=== PATIENT | male | born 2000 | race Caucasian/White ===

== ENCOUNTER 2023-02-13 11:22 | Emergency (ER) | payer BC ==
[2023-02-13] MEDS ORDERED: KETOROLAC 30 MG/ML INJ ONE (11:46)
[2023-02-13] MEDS ORDERED: dexAMETHasone 10 MG/ML VIAL ONE (11:46)
--- NOTE | 2023-02-13 11:51 | ER ---
Nurse's Notes [facility] Name: Curtis Wagner Age: 22 yrs Sex: Male : 2000 Arrival Date: 02/13/2023 Time: 11:22 Bed 19 Private MD: Diagnosis: Sciatica, right side Presentation: 02/13 11:31 Chief complaint: Patient states: R sided back pain that radiates to R hip area since ss yesterday. No known injury. Coronavirus screen: Client denies travel out of the [place] in the last 14 days. Ebola Screen: Patient denies exposure to infectious person. Patient denies travel to an Ebola-affected area in the 21 days before illness onset. Initial Sepsis Screen: Does the patient meet any 2 criteria? No. Patient's initial sepsis screen is negative. Does the patient have a suspected source of infection? No. Patient's initial sepsis screen is negative. Risk Assessment: Do you want to hurt yourself or someone else? Patient reports no desire to harm self or others. Onset of symptoms was February 12, 2023. 11:31 Method Of Arrival: Ambulatory ss 11:31 Acuity: BOOGIE 4 ss Historical: - Allergies: 11:32 No Known Allergies; ss - Home Meds: 11:32 None [Active]; ss - PMHx: 11:32 None; ss - PSHx: 11:32 L foot repair; ss - Immunization history:: Client reports having NOT received the Covid vaccine. - Social history:: Smoking status: Patient reports the use of cigarette tobacco products, denies chronic smoking, but will smoke occasionally. Vital Signs: 11:31 BP 156 / 89; Pulse 76; Resp 16; Temp 98.8(TE); Pulse Ox 100% on R/A; Pain 6/10; ss 12:12 BP 135 / 60; Pulse 75; Resp 15; Pulse Ox 100% ; Pain 3/10; jl7 11:31 Pain Scale: Adult ss 12:12 Pain Scale: Adult jl7 ED Course: 11:23 Patient arrived in ED. rg4 11:23 Steffanie Musa FNP-C is [facility]. kb 11:23 Avery Dowling MD is Attending Physician. kb 11:32 Triage completed. ss 11:32 Arm band placed on left wrist. ss 11:34 Ade Meadows, RN is Primary Nurse. jl7 12:13 No provider procedures requiring assistance completed. Patient did not have IV access jl7 during this emergency room visit. Administered Medications: 11:47 Drug: Dexamethasone IM 10 mg Route: IM; Site: left deltoid; jl7 12:12 Follow up: Response: No adverse reaction jl7 11:47 Drug: Ketorolac IM 30 mg Route: IM; Site: right deltoid; jl7 12:12 Follow up: Response: No adverse reaction; Pain is decreased jl7 Outcome: 11:50 Discharge ordered by . kb 12:13 Discharged to home ambulatory. jl7 12:13 Condition: stable 12:13 Discharge instructions given to patient, Instructed on discharge instructions, follow up and referral plans. medication usage, Demonstrated understanding of instructions, follow-up care, medications, Prescriptions given X 3. 12:13 Patient left the ED. jl7 Signatures: Steffanie Musa, CARDIAC EXERCISE PHYSIOLOGIST-C CARDIAC EXERCISE PHYSIOLOGIST-CkInna Lucio, RN RN Sheila Benitez rg4 Ade Meadows, RN RN jl7
--- NOTE | 2023-02-13 11:51 | EDPHYS ---
Physician Documentation [facility] Name: Curtis Wagner Age: 22 yrs Sex: Male : 2000 Arrival Date: 02/13/2023 Time: 11:22 Bed 19 Private MD: ED Physician Avery Dowling HPI: 02/13 17:17 This 22 yrs old Male presents to ER via Ambulatory with complaints of Hip Pain, Back kb Pain. 17:17 Pt reports right hip/buttock pain that radiates down leg that started yesterday. Denies kb injury. Denies urinary symptoms. No CVA tenderness. 17:17 The patient presents with pain that is acute, with no known mechanism of injury. The kb symptoms are located in the right low back. The pain radiates to the right leg. The problem was sustained from unknown cause. Onset: The symptoms/episode began/occurred yesterday. Modifying factors: The patient symptoms are alleviated by nothing, the patient symptoms are aggravated by any movement. Associated signs and symptoms: The patient has no apparent associated signs or symptoms. Severity of symptoms: At their worst the symptoms were mild, moderate, in the emergency department the symptoms are unchanged. The patient has not experienced similar symptoms in the past. The patient has not recently seen a physician. Historical: - Allergies: 11:32 No Known Allergies; ss - Home Meds: 11:32 None [Active]; ss - PMHx: 11:32 None; ss - PSHx: 11:32 L foot repair; ss - Immunization history:: Client reports having NOT received the Covid vaccine. - Social history:: Smoking status: Patient reports the use of cigarette tobacco products, denies chronic smoking, but will smoke occasionally. ROS: 17:15 Constitutional: Negative for fever, chills, and weight loss. kb 17:15 Back: Positive for pain at rest, pain with movement, radiated pain. 17:15 All other systems are negative. Exam: 17:15 Constitutional: This is a well developed, well nourished patient who is awake, alert, kb and in no acute distress. Head/Face: Normocephalic, atraumatic. ENT: Moist Mucous membranes Cardiovascular: Regular rate and rhythm with a normal S1 and S2. No gallops, murmurs, or rubs. No pulse deficits. Respiratory: Respirations even and unlabored. No increased work of breathing. Talking in full sentences Abdomen/GI: Soft, non-tender. No distention Skin: Warm, dry with normal turgor. Normal color. MS/ Extremity: Pulses equal, no cyanosis. Neurovascular intact. Full, normal range of motion. Neuro: Awake and alert, GCS 15, oriented to person, place, time, and situation. Moves all extremities. Normal gait. 17:15 Back: mild tenderness to right hip and buttock. Vital Signs: 11:31 BP 156 / 89; Pulse 76; Resp 16; Temp 98.8(TE); Pulse Ox 100% on R/A; Pain 6/10; ss 12:12 BP 135 / 60; Pulse 75; Resp 15; Pulse Ox 100% ; Pain 3/10; jl7 11:31 Pain Scale: Adult ss 12:12 Pain Scale: Adult jl7 MDM: 11:27 Patient medically screened. kb 17:24 Differential diagnosis: strain, sciatica, contusion, Herniated disc. Data reviewed: kb vital signs, nurses notes. Test considered but Not performed: X-ray: x-ray considered, but pt has no bony tenderness, no injury or trauma. Counseling: I had a detailed discussion with the patient and/or guardian regarding: the historical points, exam findings, and any diagnostic results supporting the discharge/admit diagnosis, the need for outpatient follow up, a family practitioner, to return to the emergency department if symptoms worsen or persist or if there are any questions or concerns that arise at home. ED course: Pt ambulates with steady gait without difficulty or distress. Administered Medications: 11:47 Drug: Dexamethasone IM 10 mg Route: IM; Site: left deltoid; jl7 12:12 Follow up: Response: No adverse reaction jl7 11:47 Drug: Ketorolac IM 30 mg Route: IM; Site: right deltoid; jl7 12:12 Follow up: Response: No adverse reaction; Pain is decreased jl7 Disposition Summary: 02/13/23 11:50 Discharge Ordered Location: Home Condition: Stable Diagnosis - Sciatica, right side kb Followup: kb - With: Emergency Department - When: As needed - Reason: Worsening of condition Followup: kb - With: Private Physician - When: 2 - 3 days - Reason: Recheck today's complaints, Continuance of care, Re-evaluation by your physician Discharge Instructions: - Discharge Summary Sheet kb - Sciatica, [id number] kb Forms: - Medication Reconciliation Form kb - Thank You Letter kb - Antibiotic Education kb - Prescription Opioid Use kb - Patient Portal Instructions kb - Leadership Thank You Letter kb Prescriptions: - Prednisone 20 mg Oral Tablet - take 1 tablet by ORAL route once daily for 5 days; 5 tablet; Refills: 0, kb Product Selection Permitted - Diclofenac Sodium 75 mg Oral tablet,delayed release (DR/EC) - take 1 tablet by ORAL route 2 times per day As needed; 30 tablet; Refills: 0, kb Product Selection Permitted - orphenadrine citrate 100 mg Oral Tablet Sustained Release - take 1 tablet by ORAL route 2 times per day As needed; 20 tablet; Refills: 0, kb Product Selection Permitted Signatures: Steffanie Musa FNP-C ASSISTANT FACILITY MANAGER-Juanjoseb Inna Jordan, RN RN ss Ade Meadows RN RN jl7 Corrections: (The following items were deleted from the chart) 17:24 17:17 Pt reports right hip/buttock pain that radiates down leg that started yesterday. sheba scruggs
[2023-02-13 12:18] VITALS: TEMP 98.8; O2SAT 100
[2023-02-13 12:19] VITALS: BP 135/60
== END 2023-02-13 12:13 | disposition home or self-care (01) ==
LOC: ER 11:22
DX: M54.31 Sciatica, right side (principal); F17.210 Nicotine dependence, cigarettes, uncomplicated
CPT/HCPCS: 96372; 99284; J1100